=== PATIENT | female | born 1960 | race Asian ===

== ENCOUNTER → 2017-09-05 | Outpatient (CLI) | payer OTHER ==
[~2017-09-05] MED LIST: ALBU8HFA IH; FLUT44HFA IH; HYDR25TA PO
== END | disposition home or self-care (01) ==
LOC: RADPV 08:30
PROVIDERS: ATTEND Internal Medicine
DX: R76.11 Nonspecific reaction to tuberculin skin test without active tuberculosis (principal); I70.0 Atherosclerosis of aorta; Z98.890 Other specified postprocedural states